=== PATIENT | male | born 1960 | race Caucasian/White ===

== ENCOUNTER 2018-07-18 03:24 | Emergency (ER) | payer OTHER ==
[~2018-07-18] VITALS: Ht 175.3 cm; Wt 68.0 kg
[~2018-07-18 03:24] MED LIST: AMOX TR-K CLV 81 TAB PO; COZAAR25 MG PO; DIABETA2.5 MG PO; GLIMEPIRIDE2 MG PO; LEVAQUIN750 MG PO; XARELTO20 MG PO
== END 2018-07-18 09:39 | disposition home or self-care (01) ==
LOC: ER 03:24
DX: M54.5 Low back pain (principal); E11.9 Type 2 diabetes mellitus without complications

== ENCOUNTER 2018-07-19 08:13 | Outpatient (CLI) | payer OTHER | END 2018-07-19 10:14 | disposition home or self-care (01) | LOC: TOM 08:13 | DX: R10.13 Epigastric pain (principal); R10.2 Pelvic and perineal pain ==

== ENCOUNTER 2018-10-14 16:13 | Outpatient (CLI) | payer OTHER | END 2018-10-14 16:26 | disposition home or self-care (01) | LOC: LAB 16:13 → RAD 16:13 | DX: E10.621 Type 1 diabetes mellitus with foot ulcer (principal) ==

== ENCOUNTER 2018-11-23 14:59 | Inpatient (IN) | payer OTHER ==
[~2018-11-23] VITALS: Ht 175.3 cm; Wt 67.1 kg
[2018-12-04] MEDS ORDERED: FLUCONAZOLE50 MG PO (15:55)
== END 2018-12-04 17:06 | disposition home or self-care (01) | DRG 503 ==
LOC: ER 14:59 → MEDJ 17:58 → ICU 11-29 14:21 → MEDJ 12-02 19:24
PROVIDERS: Specialist; ADMIT Internal Medicine
PROC: BQ3DZZZ Magnetic Resonance Imaging (MRI) of Right Lower Leg (ICD-10-PCS; 2018-11-23)
PROC: B246ZZZ Ultrasonography of Right and Left Heart (ICD-10-PCS; 2018-11-24)
PROC: 0Y6X0Z0 Detachment at Right 5th Toe, Complete, Open Approach (ICD-10-PCS; principal; 2018-11-26 10:00)
PROC: BW21ZZZ Computerized Tomography (CT Scan) of Abdomen and Pelvis (ICD-10-PCS; 2018-11-27)
PROC: 4A12X4Z Monitoring of Cardiac Electrical Activity, External Approach (ICD-10-PCS; 2018-11-28)
PROC: 30233N1 Transfusion of Nonautologous Red Blood Cells into Peripheral Vein, Percutaneous Approach (ICD-10-PCS; 2018-11-28)
PROC: 3E0F7GC Introduction of Other Therapeutic Substance into Respiratory Tract, Via Natural or Artificial Opening (ICD-10-PCS; 2018-11-29)
DX: M86.171 Other acute osteomyelitis, right ankle and foot (principal); J81.0 Acute pulmonary edema; J96.01 Acute respiratory failure with hypoxia; N17.8 Other acute kidney failure; J90 Pleural effusion, not elsewhere classified; I96 Gangrene, not elsewhere classified; A04.72 Enterocolitis due to Clostridium difficile, not specified as recurrent; L97.514 Non-pressure chronic ulcer of other part of right foot with necrosis of bone; L03.031 Cellulitis of right toe; B96.1 Klebsiella pneumoniae [K. pneumoniae] as the cause of diseases classified elsewhere; B95.1 Streptococcus, group B, as the cause of diseases classified elsewhere; E11.69 Type 2 diabetes mellitus with other specified complication; E11.621 Type 2 diabetes mellitus with foot ulcer; I50.89 Other heart failure; E78.49 Other hyperlipidemia; E78.00 Pure hypercholesterolemia, unspecified; D64.89 Other specified anemias; I12.9 Hypertensive chronic kidney disease with stage 1 through stage 4 chronic kidney disease, or unspecified chronic kidney disease; N18.1 Chronic kidney disease, stage 1; Z99.81 Dependence on supplemental oxygen; Z79.4 Long term (current) use of insulin
CPT/HCPCS: 73722

== ENCOUNTER 2018-12-27 15:43 | Outpatient (CLI) | payer OTHER ==
[~2018-12-27 15:43] MED LIST changes: +FLUCONAZOLE50 MG PO
== END 2018-12-27 15:58 | disposition home or self-care (01) ==
LOC: LAB 15:43
DX: E10.621 Type 1 diabetes mellitus with foot ulcer (principal)

== ENCOUNTER 2019-01-23 11:32 | Emergency (ER) | payer OTHER ==
[~2019-01-23] VITALS: Ht 175.3 cm; Wt 62.6 kg
== END 2019-01-23 13:18 | disposition home or self-care (01) ==
LOC: ER 11:32
DX: Z89.421 Acquired absence of other right toe(s) (principal)

== ENCOUNTER 2019-01-25 00:17 | Inpatient (IN) | payer OTHER ==
[~2019-01-25] VITALS: Ht 175.3 cm; Wt 62.6 kg
[2019-02-24] MEDS ORDERED: ELIQUIS2.5 MG PO (16:08)
[2019-02-24] MEDS ORDERED: INTEGRA F CAPS1 EACH PO (16:09)
[2019-02-24] MEDS ORDERED: BUMETANIDE1 MG PO (16:09)
[2019-02-24] MEDS ORDERED: PROTEINEX-18 LI30 ML PO (16:10)
== END 2019-02-24 17:16 | disposition home or self-care (01) | DRG 616 ==
LOC: ER 00:17 → MEDJ 13:30
PROVIDERS: Specialist; ADMIT Internal Medicine
PROC: 4A033R1 Measurement of Arterial Saturation, Peripheral, Percutaneous Approach (ICD-10-PCS; 2019-01-25)
PROC: B44HZZZ Ultrasonography of Bilateral Lower Extremity Arteries (ICD-10-PCS; 2019-01-26)
PROC: B246ZZZ Ultrasonography of Right and Left Heart (ICD-10-PCS; 2019-01-26)
PROC: BW40ZZZ Ultrasonography of Abdomen (ICD-10-PCS; 2019-01-26)
PROC: 8E0ZXY6 Isolation (ICD-10-PCS; 2019-01-27)
PROC: B020ZZZ Computerized Tomography (CT Scan) of Brain (ICD-10-PCS; 2019-01-27)
PROC: 0JBQ0ZZ Excision of Right Foot Subcutaneous Tissue and Fascia, Open Approach (ICD-10-PCS; 2019-01-28)
PROC: BQ3LZZZ Magnetic Resonance Imaging (MRI) of Right Foot (ICD-10-PCS; 2019-01-28)
PROC: 0Y6V0Z0 Detachment at Right 4th Toe, Complete, Open Approach (ICD-10-PCS; principal; 2019-01-28 08:15)
PROC: B54NZZZ Ultrasonography of Left Upper Extremity Veins (ICD-10-PCS; 2019-01-29)
PROC: B54DZZZ Ultrasonography of Bilateral Lower Extremity Veins (ICD-10-PCS; 2019-02-03)
PROC: BP3 Imaging, Non-Axial Upper Bones, Magnetic Resonance Imaging (MRI) (ICD-10-PCS; 2019-02-03)
PROC: 3E0F7GC Introduction of Other Therapeutic Substance into Respiratory Tract, Via Natural or Artificial Opening (ICD-10-PCS; 2019-02-04)
PROC: BW40ZZZ Ultrasonography of Abdomen (ICD-10-PCS; 2019-02-05)
PROC: BB24ZZZ Computerized Tomography (CT Scan) of Bilateral Lungs (ICD-10-PCS; 2019-02-06)
PROC: 30233N1 Transfusion of Nonautologous Red Blood Cells into Peripheral Vein, Percutaneous Approach (ICD-10-PCS; 2019-02-07)
PROC: BB4BZZZ Ultrasonography of Pleura (ICD-10-PCS; 2019-02-08)
PROC: BP3 Imaging, Non-Axial Upper Bones, Magnetic Resonance Imaging (MRI) (ICD-10-PCS; 2019-02-17)
PROC: 0R9 Upper Joints, Drainage (ICD-10-PCS; 2019-02-17)
PROC: BP3 Imaging, Non-Axial Upper Bones, Magnetic Resonance Imaging (MRI) (ICD-10-PCS; 2019-02-22)
DX: E11.621 Type 2 diabetes mellitus with foot ulcer (principal); J81.0 Acute pulmonary edema; A41.01 Sepsis due to Methicillin susceptible Staphylococcus aureus; J96.00 Acute respiratory failure, unspecified whether with hypoxia or hypercapnia; T87.43 Infection of amputation stump, right lower extremity; L03.115 Cellulitis of right lower limb; M86.671 Other chronic osteomyelitis, right ankle and foot; I96 Gangrene, not elsewhere classified; I50.20 Unspecified systolic (congestive) heart failure; I13.0 Hypertensive heart and chronic kidney disease with heart failure and stage 1 through stage 4 chronic kidney disease, or unspecified chronic kidney disease; L03.114 Cellulitis of left upper limb; J91.8 Pleural effusion in other conditions classified elsewhere; L97.518 Non-pressure chronic ulcer of other part of right foot with other specified severity; L02.414 Cutaneous abscess of left upper limb; E11.52 Type 2 diabetes mellitus with diabetic peripheral angiopathy with gangrene; E11.69 Type 2 diabetes mellitus with other specified complication; I82.442 Acute embolism and thrombosis of left tibial vein; I82.412 Acute embolism and thrombosis of left femoral vein; N17.8 Other acute kidney failure; E11.65 Type 2 diabetes mellitus with hyperglycemia; L03.031 Cellulitis of right toe; I87.2 Venous insufficiency (chronic) (peripheral); Z89.421 Acquired absence of other right toe(s); D63.1 Anemia in chronic kidney disease; J09.X2 Influenza due to identified novel influenza A virus with other respiratory manifestations; N18.3 Chronic kidney disease, stage 3 (moderate); G58.8 Other specified mononeuropathies; B95.61 Methicillin susceptible Staphylococcus aureus infection as the cause of diseases classified elsewhere; K80.20 Calculus of gallbladder without cholecystitis without obstruction; M60.832 Other myositis, left forearm; I82.433 Acute embolism and thrombosis of popliteal vein, bilateral; I82.492 Acute embolism and thrombosis of other specified deep vein of left lower extremity; R51 Headache
CPT/HCPCS: 73221

== ENCOUNTER 2021-01-16 09:39 | Inpatient (IN) | payer OTHER ==
[~2021-01-16] VITALS: Ht 175.3 cm; Wt 72.6 kg
[~2021-01-16 09:39] MED LIST changes: +BUMETANIDE1 MG PO; +ELIQUIS2.5 MG PO; +INTEGRA F CAPS1 EACH PO; +PROTEINEX-18 LI30 ML PO
[2021-01-16] MEDS ORDERED: AVAPRO75 MG PO (09:43)
[2021-01-16] MEDS ORDERED: LANTUS SOL100 UNIT/1 SQ (09:43)
[2021-01-18] MEDS ORDERED: GABAPENTIN400 MG (14:36)
[2021-01-21] MEDS ORDERED: AMLODIPINE BESY10 MG PO (11:22)
[2021-01-21] MEDS ORDERED: DOXAZOSIN MESYLA2 MG PO (11:24)
== END 2021-01-21 14:01 | disposition home or self-care (01) | DRG 684 ==
LOC: ER 09:39 → MEDI 01-17 02:03
PROVIDERS: ADMIT Internal Medicine; ATTEND Internal Medicine
PROC: BW28ZZZ Computerized Tomography (CT Scan) of Head (ICD-10-PCS; principal; 2021-01-16)
PROC: BT43ZZZ Ultrasonography of Bilateral Kidneys (ICD-10-PCS; 2021-01-16)
PROC: 4A12X4Z Monitoring of Cardiac Electrical Activity, External Approach (ICD-10-PCS; 2021-01-16)
PROC: B345ZZZ Ultrasonography of Bilateral Common Carotid Arteries (ICD-10-PCS; 2021-01-16)
PROC: B348ZZZ Ultrasonography of Bilateral Internal Carotid Arteries (ICD-10-PCS; 2021-01-16)
PROC: B030ZZZ Magnetic Resonance Imaging (MRI) of Brain (ICD-10-PCS; 2021-01-17)
PROC: B24BZZZ Ultrasonography of Heart with Aorta (ICD-10-PCS; 2021-01-17)
DX: N17.8 Other acute kidney failure (principal); R55 Syncope and collapse; E11.65 Type 2 diabetes mellitus with hyperglycemia; E11.69 Type 2 diabetes mellitus with other specified complication; S09.90XA Unspecified injury of head, initial encounter; S70.02XA Contusion of left hip, initial encounter; S70.01XA Contusion of right hip, initial encounter; S30.0XXA Contusion of lower back and pelvis, initial encounter; W18.30XA Fall on same level, unspecified, initial encounter; Y93.89 Activity, other specified; Y92.012 Bathroom of single-family (private) house as the place of occurrence of the external cause; Y99.8 Other external cause status; Z20.822 Contact with and (suspected) exposure to COVID-19; Z79.4 Long term (current) use of insulin
CPT/HCPCS: 70544